=== PATIENT | female | born 1980 | race Hispanic/Latino ===

== ENCOUNTER 2018-02-13 20:15 | Emergency (ER) | payer BC, OTHER ==
[~2018-02-13] VITALS: Ht 167.6 cm; Wt 77.1 kg
--- OUTSIDE RECORDS SUMMARY | 2018-02-13 20:18 | XMS REPORT | Clinical Summary ---
Author Author JONH [facility] Address Unknown Phone Unavailable Care Team Providers Care Viscera Washer Name Role Phone PCP Unavailable Allergies No Known Allergies Current Medications Prescription Sig. Disp. Refills Start End Date Status Date metFORMIN (GLUCOPHAGE) Take 500 mg by mouth Active 500 MG tabletIndications: daily. Abnormal liver enzymes, Immunity status testing, Type 2 diabetes mellitus with complication (HCC), Arthralgia of both knees, Chronic fatigue nabumetone (RELAFEN) 500 Take 500 mg by mouth as Active MG tabletIndications: needed. Abnormal liver enzymes, Immunity status testing, Type 2 diabetes mellitus with complication (HCC), Arthralgia of both knees, Chronic fatigue cholecalciferol, vitamin Take by mouth. Active D3, 1,000 unit capsuleIndications: Abnormal liver enzymes, Immunity status testing, Type 2 diabetes mellitus with complication (HCC), Arthralgia of both knees, Chronic fatigue atorvastatin (LIPITOR) 20 Take 1 tablet (20 mg 30 tablet 6 01/23/20 01/23/20 MG tablet total) by mouth nightly. 17 18 aspirin 81 MG chewable Take 1 tablet (81 mg 30 tablet 11 01/23/20 tablet total) by mouth daily. 17 18 Active Problems Problem Noted Date Focal neurological deficit 01/22/2017 Transient cerebral ischemia, unspecified type 01/21/2017 Abnormal liver enzymes 08/13/2016 Last Assessment & Plan: Elevated in a hepatocellular pattern. Her symptoms of joint pain and fatigue are concerning for an autoimmune process. Given high ILBBY titer and +ASMA, we will further investigate. She also has risk factors for fatty liver disease given obesity and diabetes. We will also obtain imaging with an MRI. A comprehensive workup will be completed to rule out other genetic, metabolic, and viral causes of liver disease. We discussed the possibility of a liver biopsy in the future for definitive diagnosis and the patient is agreeable. Immunity status testing 08/13/2016 Last Assessment & Plan: All patients with chronic liver disease, regardless of etiology, should be immunized to prevent hepatitis A and hepatitis B if they are not already immune. We will test for immunity to both viruses - vaccine recommendations will follow. Type 2 diabetes mellitus 08/13/2016 Last Assessment & Plan: Controlled on metformin. We defer management to her primary care physician. Joint pain 08/13/2016 Last Assessment & Plan: The patient is currently undergoing evaluation. We defer management to Dr. Gomes. She controls pain with nabumetone. Chronic fatigue 08/13/2016 Family History Medical History Relation Name Comments Unremarkable Father Unremarkable Mother Relation Name Status Comments Father Mother Social History Tobacco Use Types Packs/Day Years Used Date Current Every Day Smoker Cigarettes 0.5 17 Tobacco Cessation: Counseling Given: Yes Alcohol Use Drinks/Week oz/Week Comments No Social - wine Sex Assigned at Date Recorded Not on file Last Filed Vital Signs Not on file Plan of Treatment Health Maintenance Due Date Last Done Comments INFLUENZA VACCINE 08/14/2017 Results Not on fileafter 02/12/2017
--- OUTSIDE RECORDS SUMMARY | 2018-02-13 20:18 | XMS REPORT ---
Author Author [facility] Address Unknown Phone Unavailable Care Team Providers Care Tank Storage Supervisor Name Role Phone HEIDI HOLM Unavailable Unavailable Problems This patient has no known problems. Allergies, Adverse Reactions, Alerts This patient has no known allergies or adverse reactions. Medications This patient has no known medications. Results Test Description Test Time Test Comments Text Results Atomic Results Result Comments HEMOGLOBIN A1C 2017-01-22 13:36:00 HEMOGLOBIN A1C (BEAKER) (test ccof=039) 6.1 % 4.3-6.1 TSH/FREE T4 IF [id number] 13:33:00* Test Item Value Reference Range Comments THYROID STIMULATING HORMONE (BEAKER) (test pcen=270) 1.88 uIU/mL 0.35-4.94 LIPID [id number] 13:12:00* Test Item Value Reference Range Comments TRIGLYCERIDES (BEAKER) (test xvfi=652) 124 mg/dL CHOLESTEROL (BEAKER) (test gksq=213) 169 mg/dL HDL CHOLESTEROL (BEAKER) (test pvql=975) 31 mg/dL LDL CHOLESTEROL CALCULATED (BEAKER) (test ntlq=403) 113 mg/dL Triglyceride Reference Range: Low Risk <150 Borderline 150-199 High Risk 200-499 Very High Risk >=500Cholesterol Reference Range: Low Risk <200 Borderline 200-239 High Risk >240HDL Cholesterol Reference Range: Low Risk >=60 High Risk <40LDL Cholesterol Reference Range: Optimal <100 Near Optimal 100-129 Borderline 130-159 High 160-189 Very High >=190 CBC W/ PLT COUNT & AUTO [id number] 08:03:00* Test Item Value Reference Range Comments WHITE BLOOD CELL COUNT (BEAKER) (test wcvw=391) 11.1 K/ L 4.0-10.0 RED BLOOD CELL COUNT (BEAKER) (test pmbs=906) 4.79 M/ L 4.00-5.00 HEMOGLOBIN (BEAKER) (test zkpo=338) 14.1 GM/DL 12.0-15.0 HEMATOCRIT (BEAKER) (test wjqo=593) 41.8 % 36.0-45.0 MEAN CORPUSCULAR VOLUME (BEAKER) (test grkm=361) 87.2 fL 82.0-99.0 MEAN CORPUSCULAR HEMOGLOBIN (BEAKER) (test sqiq=888) 29.4 pg 27.0-33.0 MEAN CORPUSCULAR HEMOGLOBIN CONC (BEAKER) (test rluq=040) 33.7 GM/DL 32.0- 36.0 RED CELL DISTRIBUTION WIDTH (BEAKER) (test jkva=035) 14.0 % 10.3-14.2 PLATELET COUNT (BEAKER) (test qzbv=368) 220 K/CU MM 150-430 MEAN PLATELET VOLUME (BEAKER) (test nhbj=141) 10.9 fL 6.5-10.5 NUCLEATED RED BLOOD CELLS (BEAKER) (test jbpv=304) 0 /100 WBC 0-0 NEUTROPHILS RELATIVE PERCENT (BEAKER) (test wqnn=787) 64 % LYMPHOCYTES RELATIVE PERCENT (BEAKER) (test erxd=581) 25 % MONOCYTES RELATIVE PERCENT (BEAKER) (test ujes=361) 7 % EOSINOPHILS RELATIVE PERCENT (BEAKER) (test ihxf=913) 4 % BASOPHILS RELATIVE PERCENT (BEAKER) (test anqb=898) 0 % NEUTROPHILS ABSOLUTE COUNT (BEAKER) (test ifyr=633) 7.06 K/ L 1.80-8.00 LYMPHOCYTES ABSOLUTE COUNT (BEAKER) (test kgth=329) 2.78 K/ L 1.48-4.50 MONOCYTES ABSOLUTE COUNT (BEAKER) (test ixds=127) 0.76 K/ L 0.00-1.30 EOSINOPHILS ABSOLUTE COUNT (BEAKER) (test emcg=741) 0.44 K/ L 0.00-0.50 BASOPHILS ABSOLUTE COUNT (BEAKER) (test qbth=020) 0.04 K/ L 0.00-0.20 0.00HEPATIC FUNCTION [id number] 04:26:00* Test Item Value Reference Range Comments TOTAL PROTEIN (BEAKER) (test owkw=391) 6.6 gm/dL 6.0-8.3 ALBUMIN (BEAKER) (test lnwy=9058) 3.7 g/dL 3.5-5.0 BILIRUBIN TOTAL (BEAKER) (test hbgw=259) 0.3 mg/dL 0.2-1.2 BILIRUBIN DIRECT (BEAKER) (test dskm=681) 0.1 mg/dL 0.1-0.5 ALKALINE PHOSPHATASE (BEAKER) (test xlmk=569) 92 U/L 40-150 AST (SGOT) (BEAKER) (test ckgx=553) 31 U/L 5-34 ALT (SGPT) (BEAKER) (test jyxw=031) 48 U/L 6-55 BASIC METABOLIC [id number] 04:26:00* Test Item Value Reference Range Comments SODIUM (BEAKER) (test eiic=925) 137 meq/L 136-145 POTASSIUM (BEAKER) (test rqjq=111) 3.8 meq/L 3.5-5.1 CHLORIDE (BEAKER) (test aria=638) 105 meq/L 98-107 CO2 (BEAKER) (test nhek=682) 22 meq/L 22-29 BLOOD UREA NITROGEN (BEAKER) (test nvvh=945) 11 mg/dL 7-21 CREATININE (BEAKER) (test zfff=440) 0.73 mg/dL 0.57-1.25 GLUCOSE RANDOM (BEAKER) (test gufx=017) 163 mg/dL 70-105 CALCIUM (BEAKER) (test mhhp=726) 8.8 mg/dL 8.4-10.2 EGFR (BEAKER) (test iotj=3127) 90 mL/min/1.73 sq m ESTIMATED GFR IS NOT ACCURATE CREATININE CLEARANCE IN PREDICTING GLOMERULAR FILTRATION RATE. ESTIMATED GFR IS NOT APPLICABLE FOR DIALYSIS PATIENTS. URINALYSIS W/ [id number] 03:44:00* Test Item Value Reference Range Comments COLOR (BEAKER) (test nnek=338) Yellow CLARITY (BEAKER) (test wynd=598) Hazy SPECIFIC GRAVITY UA (BEAKER) (test lxrv=437) 1.020 1.001-1.035 PH UA (BEAKER) (test eaqp=104) 5.5 5.0-8.0 PROTEIN UA (BEAKER) (test wtvh=573) Negative Negative GLUCOSE UA (BEAKER) (test ouyk=370) Negative Negative KETONES UA (BEAKER) (test csua=939) Negative Negative BILIRUBIN UA (BEAKER) (test oblp=350) Negative Negative BLOOD UA (BEAKER) (test yghr=069) Moderate Negative NITRITE UA (BEAKER) (test wktr=589) Negative Negative LEUKOCYTE ESTERASE UA (BEAKER) (test gxtj=560) Negative Negative UROBILINOGEN UA (BEAKER) (test hqsj=091) 0.2 mg/dL 0.2-1.0 RBC UA (BEAKER) (test hlpa=470) 25 /HPF WBC UA (BEAKER) (test vqav=204) 3 /HPF BACTERIA (BEAKER) (test gbzv=928) Moderate MUCUS (BEAKER) (test ueal=5703) Rare SQUAMOUS EPITHELIAL (BEAKER) (test blpg=963) 3 /HPF CASTS (BEAKER) (test xutx=0614) 2 /LPF AMORPHOUS CRYSTALS (BEAKER) (test jrfe=3280) Few SOURCE(BEAKER) (test jpya=1703) Urine, Voided CREATINE KINASE (CK), TOTAL AND [id number] 17:21:00* Test Item Value Reference Range Comments CREATINE KINASE TOTAL (BEAKER) (test yyqn=117) 60 U/L 29-200 CREATINE KINASE-MB (BEAKER) (test rhox=307) 0.6 ng/mL 0.0-6.6 CREATINE KINASE-MB INDEX (BEAKER) (test sxoq=169) 1.0 % Effective 10/01/2014: CK-MB Reference Range ChangeNew: 0.0-6.6 Previous: 0.0- 4.9CK-MB Reference Range:<6.7 Normal6.7-10.0 Borderline>10.0 AbnormalTROPONIN [id number] 17:21:00* Test Item Value Reference Range Comments TROPONIN I (BEAKER) (test tqrj=920) < ng/mL 0.00-0.03 Effective 10/01/2014: Reference Range ChangeNew: 0.00-0.03 Previous 0.00- 0.15Troponin I (TnI) levels must be interpreted in the context of the presenting symptoms and the clinical findings. Elevated TnI levels indicate myocardial damage, but are not specific for ischemic heart disease. Elevated TnI levels are seen in patients with other cardiac conditions (including myocarditis and congestive heart failure), and slight TnI elevations occur in patients with other conditions, including sepsis, renal failure, acidosis, acute neurological disease, and persistent tachyarrhythmia.[id number] 17:13:00* Test Item Value Reference Range Comments MAGNESIUM (BEAKER) (test cvqf=627) 2.1 mg/dL 1.6-2.6 BASIC METABOLIC [id number] 17:13:00* Test Item Value Reference Range Comments SODIUM (BEAKER) (test qwjj=930) 135 meq/L 136-145 POTASSIUM (BEAKER) (test ierc=090) 4.3 meq/L 3.5-5.1 CHLORIDE (BEAKER) (test hnnb=944) 105 meq/L 98-107 CO2 (BEAKER) (test guel=953) 22 meq/L 22-29 BLOOD UREA NITROGEN (BEAKER) (test uzzb=520) 13 mg/dL 7-21 CREATININE (BEAKER) (test iqms=274) 0.75 mg/dL 0.57-1.25 GLUCOSE RANDOM (BEAKER) (test uswm=220) 84 mg/dL 70-105 CALCIUM (BEAKER) (test jjqf=670) 9.1 mg/dL 8.4-10.2 EGFR (BEAKER) (test pgul=1116) 87 mL/min/1.73 sq m ESTIMATED GFR IS NOT ACCURATE CREATININE CLEARANCE IN PREDICTING GLOMERULAR FILTRATION RATE. ESTIMATED GFR IS NOT APPLICABLE FOR DIALYSIS PATIENTS. SCREEN, [id number] 17:02:00* Test Item Value Reference Range Comments TEST URINE (BEAKER) (test axvo=105) Negative CBC W/PLT COUNT & AUTO [id number] 16:54:00* Test Item Value Reference Range Comments WHITE BLOOD CELL COUNT (BEAKER) (test qsyk=617) 12.3 K/ L 4.0-10.0 RED BLOOD CELL COUNT (BEAKER) (test yacc=291) 4.88 M/ L 4.00-5.00 HEMOGLOBIN (BEAKER) (test mvxe=242) 14.2 GM/DL 12.0-15.0 HEMATOCRIT (BEAKER) (test hogo=670) 42.7 % 36.0-45.0 MEAN CORPUSCULAR VOLUME (BEAKER) (test jrxr=863) 87.4 fL 82.0-99.0 MEAN CORPUSCULAR HEMOGLOBIN (BEAKER) (test eeyp=890) 29.1 pg 27.0-33.0 MEAN CORPUSCULAR HEMOGLOBIN CONC (BEAKER) (test shvp=614) 33.3 GM/DL 32.0- 36.0 RED CELL DISTRIBUTION WIDTH (BEAKER) (test zrvz=716) 14.0 % 10.3-14.2 PLATELET COUNT (BEAKER) (test fawf=818) 240 K/CU MM 150-430 MEAN PLATELET VOLUME (BEAKER) (test xtfq=897) 10.0 fL 6.5-10.5 NUCLEATED RED BLOOD CELLS (BEAKER) (test lppu=694) 0 /100 WBC 0-0 NEUTROPHILS RELATIVE PERCENT (BEAKER) (test ecxq=801) 60 % LYMPHOCYTES RELATIVE PERCENT (BEAKER) (test nbgx=213) 29 % MONOCYTES RELATIVE PERCENT (BEAKER) (test vsci=519) 6 % EOSINOPHILS RELATIVE PERCENT (BEAKER) (test gqdz=742) 5 % BASOPHILS RELATIVE PERCENT (BEAKER) (test rasd=212) 0 % NEUTROPHILS ABSOLUTE COUNT (BEAKER) (test iiga=217) 7.42 K/ L 1.80-8.00 LYMPHOCYTES ABSOLUTE COUNT (BEAKER) (test fxrq=645) 3.51 K/ L 1.48-4.50 MONOCYTES ABSOLUTE COUNT (BEAKER) (test rijz=872) 0.79 K/ L 0.00-1.30 EOSINOPHILS ABSOLUTE COUNT (BEAKER) (test hnij=823) 0.58 K/ L 0.00-0.50 BASOPHILS ABSOLUTE COUNT (BEAKER) (test zfzq=343) 0.03 K/ L 0.00-0.20 0.00
[2018-02-13] MEDS ORDERED: KETOROLAC TROMETHAMINE 60 MG/2 ML VIAL IM ONE (21:00)
[2018-02-13 22:09] VITALS: BP 134/74
== END 2018-02-13 22:00 | disposition home or self-care (01) ==
LOC: FSED 20:15
DX: M25.562 Pain in left knee (principal); S80.02XA Contusion of left knee, initial encounter; S30.0XXA Contusion of lower back and pelvis, initial encounter; W10.8XXA Fall (on) (from) other stairs and steps, initial encounter; Y93.01 Activity, walking, marching and hiking; Y92.008 Other place in unspecified non-institutional (private) residence as the place of occurrence of the external cause
CPT/HCPCS: 72100; 81025; 99283; J1885

== ENCOUNTER 2020-01-22 19:51 | Emergency (ER) | payer OTHER ==
[~2020-01-22] VITALS: Ht 162.6 cm; Wt 99.8 kg
[2020-01-22] MEDS ORDERED: SODIUM CHLORIDE 0.9% 1000ML 1,000 ML IV STA (21:11)
[2020-01-22] MEDS ORDERED: KETOROLAC TROMETHAMINE 30 MG/ML VIAL IV STA (21:11)
[2020-01-22] MEDS ORDERED: DIAZEPAM INJ 5 MG/ML 2 ML IV ONE (21:15)
[2020-01-22 21:32] LABS: BASOPHILS # (AUTO) 0.1 (0.0-0.1); BASOPHILS % 0.5 % (0.0-1.0); EOSINOPHILS # (AUTO) 0.5 (0.0-0.4); EOSINOPHILS % 4.2 % (0.0-6.0); HEMATOCRIT 40.5 % (34.2-44.1); HEMOGLOBIN 13.4 g/dL (12.0-16.0); LYMPHOCYTES # (AUTO) 3.4 (1.0-3.2); LYMPHOCYTES % 29.2 % (18.0-39.1); MEAN CORPUSCULAR HEMOGLOBIN 27.6 pg (28-32); MEAN CORPUSCULAR HGB CONC 33.1 g/dL (31-35); MEAN CORPUSCULAR VOLUME 83.5 fL (81-99); MONOCYTES # (AUTO) 0.8 (0.2-0.8); MONOCYTES % 7.2 % (4.4-11.3); NEUTROPHILS # (AUTO) 6.8 (2.1-6.9); NEUTROPHILS % 58.4 % (38.7-80.0); PLATELET COUNT 285 x10e3/uL (140-360); RED BLOOD COUNT 4.85 x10e6/uL (3.6-5.1); RED CELL DISTRIBUTION WIDTH 15.6 % (11.7-14.4)
[2020-01-22 21:45] LABS: CLARITY,URINE SL CLOUDY (CLEAR); COLOR,URINE YELLOW (YELLOW); LEUKOCYTE ESTERASE ,URINE NEGATIVE (NEGATIVE); NITRITE,URINE NEGATIVE (NEGATIVE)
[2020-01-22] MEDS ORDERED: DIAZEPAM 5 MG TAB PO ONE (21:45)
[2020-01-22 21:46] LABS: BILIRUBIN,URINE NEGATIVE (NEGATIVE); KETONES,URINE NEGATIVE (NEGATIVE); PROTEIN,URINE DIPSTICK NEGATIVE (NEGATIVE); URINE UROBILINOGEN 0.2 mg/dL (0.2 - 1)
[2020-01-22 21:51] LABS: LIPASE 38 U/L (8-78)
[2020-01-22 21:54] LABS: ALANINE AMINOTRANSFERASE 118 IU/L (0-55); ALBUMIN 3.9 g/dL (3.5-5.0); ALBUMIN/GLOBULIN RATIO 1.3 (0.8-2.0); ALKALINE PHOSPHATASE 112 IU/L (40-150); ANION GAP 11.4 mmol/L (8-16); BACTERIA,URINE FEW /HPF; BLOOD UREA NITROGEN 14 mg/dL (7-26); BUN/CREATININE RATIO 19 (6-25); CALCIUM 9.4 mg/dL (8.4-10.2); CARBON DIOXIDE 25 mmol/L (22-29); CHLORIDE 105 mmol/L (98-107); CREATINE KINASE 34 IU/L (29-168); CREATININE, SERUM 0.75 mg/dL (0.57-1.11); EPITHELIAL CELLS,URINE FEW /LPF; EST GLOMERULAR FILTRATION RATE > 60 ML/MIN (60-); GLUCOSE 112 mg/dL (74-118); POTASSIUM 4.4 mmol/L (3.5-5.1); SODIUM 137 mmol/L (136-145)
[2020-01-22] MEDS ORDERED: SODIUM CHLORIDE 0.9% 50ML 50 ML ONE (22:12)
[2020-01-22] MEDS ORDERED: IOPAMIDOL 370 MG/ML 200 ML INFUS..BTL INJ ONE (22:12)
--- NOTE | 2020-01-22 22:47 | Diagnostic Imaging Report ---
EXAM: CT Abdomen and Pelvis WITH contrast INDICATION: Right flank pain. COMPARISON: Report from CT abdomen/pelvis dated 08/30/2015, although the images are not available for review. TECHNIQUE: Abdomen and pelvis were scanned utilizing a multidetector helical scanner from the lung base to the pubic symphysis after administration of IV contrast. Coronal and sagittal reformations were obtained. Routine protocol was performed. Scan was performed when during portal venous phase. IV CONTRAST: 100 cc of Isovue-370. ORAL CONTRAST: Water COMPLICATIONS: None RADIATION DOSE: Total DLP: (DLP x 0.015 x size factor) mGy*cm Estimated effective dose: (DLP x 0.015 x size factor) mSv CTDIvol has been reviewed. It is below the limits set by the Radiation Protocol Committee (RPC). FINDINGS: LINES and TUBES: None. LOWER THORAX: Unremarkable HEPATOBILIARY: Diffuse hepatic steatosis. No evidence of focal lesion. No biliary ductal dilation. GALLBLADDER: Status post cholecystectomy. SPLEEN: No splenomegaly. PANCREAS: No focal masses or ductal dilatation. ADRENALS: Indeterminate 1.3 cm right adrenal nodule (series 2, image 20; 43 HU) and 1.2 cm left adrenal nodule (series 2, image 21; 53 HU). KIDNEYS/URETERS: Kidneys enhance symmetrically. No evidence of hydronephrosis, solid mass, or stone. GI TRACT: No evidence of wall thickening or distension. Appendix is normal. PELVIC ORGANS/BLADDER: Partially decompressed bladder. LYMPH NODES: No lymphadenopathy. VESSELS: Scattered mild aortic atherosclerosis. PERITONEUM / RETROPERITONEUM: No free air or fluid. BONES AND SOFT TISSUES: Unremarkable. CONCLUSION: No evidence of nephrolithiasis. Diffuse hepatic steatosis. Indeterminant bilateral adrenal nodules. Recommend nonemergent follow-up adrenal protocol CT or MRI for further evaluation. Signed by: Dr. Ricardo Hicks MD on 01/22/2020 10:45 PM
[2020-01-22 23:46] VITALS: BP 101/65
== END 2020-01-23 00:05 | disposition home or self-care (01) ==
LOC: ER 19:51
DX: S39.012A Strain of muscle, fascia and tendon of lower back, initial encounter (principal); F17.210 Nicotine dependence, cigarettes, uncomplicated
CPT/HCPCS: 36415; 74177; 80053; 81001; 82550; 82553; 83690; 84484; 84702; 85025; 99284; J1885; J7030; Q9967

== ENCOUNTER 2024-01-22 10:20 | Emergency (ER) | payer OTHER ==
[~2024-01-22] VITALS: Ht 162.6 cm; Wt 99.8 kg
[2024-01-22] MEDS: HYDROCODONE/APAP 5MG-325MG TAB PO ONE (10:41)
[2024-01-22] MEDS ORDERED: ULTRAM 50MG50 MG PO (11:56)
[2024-01-22] MEDS ORDERED: CELEBREX100 MG PO (11:56)
[2024-01-22 12:15] VITALS: BP 140/83; PULSE 75; RESP 17; TEMP 98.1; O2SAT 100
== END 2024-01-22 12:17 | disposition home or self-care (01) ==
LOC: ER 10:25
DX: M25.511 Pain in right shoulder (principal); M75.31 Calcific tendinitis of right shoulder; E11.9 Type 2 diabetes mellitus without complications; Z87.442 Personal history of urinary calculi; F17.210 Nicotine dependence, cigarettes, uncomplicated
CPT/HCPCS: 99283